=== PATIENT | male | born 1980 | race Caucasian/White ===

== ENCOUNTER 2021-12-29 17:02 | Inpatient (IN) | payer OTHER ==
[~2021-12-29] VITALS: Ht 177.8 cm; Wt 98.1 kg
[~2021-12-29 17:02] MED LIST: AMPHETAMINE SAL20 MG PO; METOPROLOL TART50 MG PO; SUDOGEST60 MG PO
[2021-12-29] MEDS ORDERED: ADDERALL 20 MG20 MG PO (17:21)
--- NOTE | 2021-12-29 18:10 | NUR ---
12/29/211809 Jacquie Herrera6- PT ARRIVES TO PACU NONAROUSABLE TO STIMULI. PT NEEDING A JAW LIFT TO MAINTAIN PATENT AIRWAY. RESP EVEN AND UNLABORED. OXYGEN SAT HIGH 90'S TO 100% ON 6L VIA MASK.
--- NOTE | 2021-12-29 20:46 | NUR ---
PT ASSESSMENT COMPLETE. PT RESTING IN BED WITH EYES CLOSED. PT REPORTS CONTINUED NAUSEA. PRN ADMINISTERED. PT REPORTS PAIN 3/10 TO LLE. PT STATES THIS IS A TOLERABLE PAIN LEVEL. PT DENIES SOB, CPOX PRESENT AT BEDSIDE, SA02 95% ON RA. LLE WITH NUMBNESS AND PT UNABLE TO MOVE TOES. CMS INTACT TO ALL OTHER EXTREMITIES. DRESSING TO LLE C/D/I. LLE ELEVATED ON PILLOWS. ICE PACKS PRESENT TO LLE. SCD PRESENT TO RLE. IV FLUSHED WITH 10 ML NS. WNL, PATENT. IVF INFUSING ORDERED. POC FOR THIS SHIFT DISCUSSED WITH PT. PT DENIES QUESTIONS OR CONCERNS AT THIS TIME. CALL LIGHT IN REACH. URINAL AND PERSONAL CARE ITEMS LEFT WITHIN REACH.
--- NOTE | 2021-12-29 22:03 | NUR ---
PT'S UTILIZES CALL LIGHT, REPORTS THAT PT IS THROWING UP. CURTAIN STITCHER TO ROOM. 150ML OF LIGHT GREEN EMESIS PRESENT IN BAG. PT REPORTS CONTINUED NAUSEA. COOL WASHCLOTH PROVIDED. NOTIFIED. NEW ORDERS RECEIVED.
--- NOTE | 2021-12-29 22:28 | NUR ---
PT STATES HE IS CURRENTLY NAUSEATED IF HE ATTEMPTS TO MOVE. PRN NAUSEA MEDICATION ADMINISTERED. PT DENIES NEEDS AT THIS TIME. CALL LIGHT IN REACH. PT'S SLEEPING ON COUCH AT BEDSIDE.
--- NOTE | 2021-12-29 23:00 | NUR ---
MILL OPERATOR TO ROOM FOR POST OP VITALS. PT STATES THAT NAUSEA IS IMPROVED LONG HE DOES NOT MOVE. SITTING IN BED WITH LIGHTS OFF. PT'S RESTING AT BEDSIDE. PT STATES THAT PAIN IS WELL CONTROLLED. PT DENIES NEEDS AT THIS TIME. CALL LIGHT IN REACH.
--- NOTE | 2021-12-30 00:15 | NUR ---
PT ROUNDING. PT RESTING IN BED AWAKE. STATES THAT PAIN AND NAUSEA ARE WELL CONTROLLED. DENIES NEEDS. CALL LIGHT IN REACH. ASLEEP ON COUCH.
--- NOTE | 2021-12-30 02:34 | NUR ---
PT ASSESSMENT COMPLETE. PT RESTING IN BED WITH EYES CLOSED, WAKES EASILY WHEN BELL PERSON ENTERS THE ROOM. PT RATING PAIN 3-4/10 TO LLE. STATES THAT PAIN IS TOLERABLE, DENIES NEEDS FOR PAIN MEDICATION AT THIS TIME. PT DENIES NAUSEA OR SOB. LLE WITH GENERALIZED SWELLING. CAP REFILL LESS THAN 3 SECONDS. PT REPORTS CONTINUED NUMBNESS TO L FOOT, HE IS UNALBE TO MOVE TOES OR PUSH/PULL. PEDAL PULSES FAINT BILATERALLY. DRESSING TO LLE C/D/I. LLE ELEVATED. NEW ICE PACKS PROVIDED FOR LLE. SCD PRESENT TO RLE. ICE WATER AND ICE CHIPS PROVIDED PER REQUEST. PT DENIES FURTHER NEEDS. CALL LIGHT IN REACH.
--- NOTE | 2021-12-30 04:30 | NUR ---
PT RESTING IN BED WITH EYES CLOSED. RESPIRATIONS ARE EVEN AND UNALBORED. SAO2 97% ON BEDSIDE CPOX. PT DOES NOT WAKE WHILE FASHION ADVISER AT DOORWAY, APPEARS TO BE SLEEPING. CALL LIGHTIN REACH. PT'S SLEPING ON COUCH.
--- NOTE | 2021-12-30 06:03 | NUR ---
PT IN BED. VITALS AND IS AND OS COMPLETE. NO FURTHER NEEDS. CALL LIGHT WITHIN REACH.
--- NOTE | 2021-12-30 06:49 | NUR ---
JOY OPERATOR HELPER TO ROOM FOR SCHEDULED MEDICATION ADMINISTRATION. PT RESTING IN BED AWAKE. PT RATES PAIN 4/10. PT STATES THAT PAIN IS BEGINNING TO INCREASE, REQUESTS PRN. JELLO PROVIDED AND PRN ADMINISTERED. GENERALIZED EDEMA CONTINUES TO LLE, CAP REFILL LESS THAN 3 SECONDS, PEDAL PULSE FAINT BUT PALPABLEM. PT CONTINUES TO BE UNABLE TO MOVE TOES OR PUSH/PULL BUT STATES THAT HE CAN FEEL TOUCH. LLE ELEVATED ON 2 PILLOWS. ICE PACKS X 3 REFILLED. DRESSING TO LLE C/D/I. PT DENIES FURTHER NEEDS AT THIS TIME. CALL LIGHT IN REACH.
--- NOTE | 2021-12-30 07:27 | NUR ---
THIS RN RECEIVED SHIFT REPORT FROM SHIRA RAY. PATIENT RESTING QUIETLY SUPINE IN BED WITH LEFT LEG ELEVATED ON PILLOW AND PATIENT SAYS HIS PAIN IS CONTROLLED AT THIS TIME AND HE HAS NO BEEN NAUSEATED. PATIENT'S AT BEDSIDE. PATIENT'S LEFT LEG DRESSING CDI. SCD ON RIGHT LEG. PATIENT DENIES ANY CARE NEEDS AT THIS TIME. CALL LIGHT IS IN REACH.
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
--- NOTE | 2021-12-30 08:07 | NUR ---
THIS RN IN AND AM ASSESSMENT COMPLETE. LEFT LOWER EXTREMITY WARM AND PINK. PEDAL PULSE WEAK, BUT MATCHES PULSE ON RIGHT FOOT, AND CAP REFILL TO BOTH LESS THAN 3 SECONDS. PATIENT HAS HAD A BLOCK PLACED IN THAT LEFT LEG AND STILL CANNOT WIGGLE THOSE TOES, BUT IS ABLE TO TELL I'M TOUCHING HIS FOOT. PATIENT'S PAIN IS 4/10 AND HE SAYS HE IS COMFORTABLE AT THIS TIME AND DENIES NAUSEA. AM PO MED GIVEN. IV FLUSHES WELL. PATIENT AWAITING BREAKFAST AND DENIES ANY OTHER CARE NEEDS AT THIS TIME. CALL LIGHT IN REACH.
[2021-12-30] MEDS ORDERED: AMPHETAMINE SAL20 MG PO (08:35)
--- NOTE | 2021-12-30 09:43 | NUR ---
THIS RN DOING ROUNDS. PATIENT'S PAIN STILL 4/10 AND HE IS COMFORTABLE AND DENIES ANY CARE NEEDS AT THIS TIME. ICE PACKES TO LLE STILL HAVE ICE AND LEG REMAINS ELEVATED ON PILLOWS. CALL LIGHT IS IN REACH.
--- NOTE | 2021-12-30 11:15 | NUR ---
ANESTHESIA PROVIDER IN SEEING PATIENT AT THIS TIME.
--- NOTE | 2021-12-30 13:29 | NUR ---
THIS RN IN TO SEE PATIENT AND PAIN IS 5/10 IN THE LLE NOW AND PATIENT REQUESTING PAIN MEDS. 10MG PO OXYCODONE GIVEN AND IV ANCEF ALSO GIVEN. ICE WATER REFILLED AND 3 ISE BAGS TO LLE ALSO REFILLED. PATIENT HAS FINALLY VOIDED 500MLS CLEAR YELLOW URINE AND URINAL EMPTIED. PATIENT HAD NO OTHER NURSE CARE NEEDS AT THIS TIME. CALL LIGHT IS IN REACH.
[2021-12-30] MEDS ORDERED: EPINEPHRIN0.3 MG/0.3 IM (13:42)
--- NOTE | 2021-12-30 13:43 | NUR ---
MED REC COMPLETE
--- NOTE | 2021-12-30 13:47 | NUR ---
THIS RN IN AND RECHECKED PATIENT'S B/P WHICH WOODWORKING MACHINIST INFORMED ME WAS A LITTLE LOW. PATIENT NOT SYMPTOMATIC AND INFORMS THIS RN HIS BLOOD PRESSURE AND HR ARE ALWAYS LOW. CALL LIGHT IN REACH. THIS RN CALLED KITCHEN TO GET PATIENT A MILK SHAKE. CALL LIGHT IN REACH.
--- NOTE | 2021-12-30 13:47 | NUR ---
PT IN BED RESTING. VITALS AND IS AND OS COMPLETE. NO FURTHER NEEDS. CALL LIGHT WITHIN REACH.
--- NOTE | 2021-12-30 14:47 | NUR ---
THIS RN IN TO SEE PATIENT. LLE PAIN 2/10 AT THIS TIME AND PATIENT IS COMFORTABLE AND HE HAS BEEN EATING WELL. AFTERNOON ASSESSMENT COMPLETE. PATIENT STILL CANNOT WIGGLE THE TOES ON HIS LEFT FOOT, BUT CAN TELL THAT I'M TOUCHING THEM. PEDAL PULSE REMAINS THE SAME AND IS PALPABLE. FOOT IS PINK AND WARM AND CAP REFILL <3 SECONDS. CALL LIGHT IS IN REACH. PATIENT FINISHED THE MILK SHAKE THAT WAS SENT UP FROM THE KITCHEN. PATIENT DENIES ANY OTHER CARE NEEDS AT THIS TIME.
--- NOTE | 2021-12-30 16:48 | NUR ---
THIS RN IN TOO CHECK ON PATIENT. PATIENT'S PAIN 2/10 AND HE IS COMFORTABLE. PATIENT AWAITING THE ARRIVAL OF DINNER AND ASKED THAT I CALL THE KITCHEN FOR ANOTHER CHOCOLATE SHAKE. WHICH I DID. PATIENT DENIES ANY OTHER CARE NEEDS AT THIS TIME. CALL LIGHT IN REACH.
--- NOTE | 2021-12-30 18:27 | NUR ---
THIS RN IN TO SEE PATIENT. PATIENT'S PAIN IS STARTING TO INCREASE AND IS AT 5/10 AT THIS TIME, BUT BLOCK IN THE LEFT LEG IS STARTING TO WEAR OFF PATIENT IS ABLE TO MOVE HIS LEFT TOES A LITTLE NOW AND IS VERY CONCERNED ABOUT HIS PAIN INCREASING.10GM PO OXYCODONE GIVEN. PATIENT'S IS AT BEDSIDE. CALL LIGHT IN REACH. NEW ICE BAGS IN PALCE AROUND LLE AND DRESSING REMAINS C/D/I. PATIENT DENIES ANY OTHER CARE NEEDS AT THIS TIME.
--- NOTE | 2021-12-30 19:20 | NUR ---
BEDSIDE REPORT FROM KAY Mckeon. PT RESTING IN BED, LEFT LEG ELEVATED DRSG CDI WITH ICE TO AREA. IN ROOM, WHITE BOARD UPDATED PT WITH CALL LIGHT. DENIES NEEDS.
--- NOTE | 2021-12-30 21:40 | NUR ---
PT AWAKENED FOR ASSESSMENT, TELE 9 SINUS TACHY, IV ABX FUSED AND SL IV. PT WITH CALL LIGHT AND NO OTHER NEEDS AT THIS TIME.
--- NOTE | 2021-12-31 01:05 | NUR ---
pt given po pain med for left leg. [facility] wnl - drsg cdi, pt voiding well in urinal. npo for anticpated closure of wound today - educated pt. call light in reach -
--- NOTE | 2021-12-31 04:54 | NUR ---
PT CALLED FOR PO PAIN MEDS, LEFT SURGICAL SITE LEFT LEG - 7/10 PAIN, CMS WNL. ICE TO AREA, DRSG CDI. PT VOID 550 ML CLEAR YELLOW URINE, LR WITH STRAIT TUBING TO IV POLE IN ANTICPATION OF SURGERY TODAY - PRE PROCEDURE CHECKLIST UPDATED.
--- NOTE | 2021-12-31 07:20 | NUR ---
HANDOFF REPORT RECEIVED FROM JUDICIAL ADMINISTRATIVE ASSISTANT RN. PT SLEEPING, LEFT UNDISTURBED.
--- NOTE | 2021-12-31 07:51 | NUR ---
PT REPORT OF INCREASED PAIN IN LEFT LEG, 8/10, THROBBING, ACHING. RECEIVED OXYCODONE AT 0452, NO OTHER PAIN MEDICATION AVAILABLE. CALL PLACED TO DR. PERLA, TELEPHONE ORDER FOR IV DILAUDID 0.5-1MG Q2H PRN FOR PAIN, RBOV.
--- NOTE | 2021-12-31 09:10 | NUR ---
PT TO OR WITH OR NURSE.
--- NOTE | 2021-12-31 10:53 | NUR ---
12/31/21 1053 Oksana Sierra 1036-PATIENT ARRIVED TO PACU ON 10L MASK NONAROUSABLE ORAL AIRWAY IN PLACE. RN DOING JAW THRUST TO MAINTAIN OPEN. SR. IVF INFUSING. DRESSING INTACT. ELEVATED ON PILLOW. PALPABLE PULSE TO LEFT FOOT. GOOD CAP REFILL. 1040-PATIENT OPENING EYES ORAL AIRWAY IN PLACE 6L MASK 100% RR 8 PATIENT TAKES DEEP BREATHES ON COMMAND APNEA NOTED. 1044-PATIENT OPENING EYES TO VERBAL STIMULI REACHING FOR MOUTH. ORAL AIRWAY REMOVED. ORIENTED TO PACU. PATIENT STATES SILENTLY MY LEG HURTS" PATIENT IS VERY DROWSY CLOSES EYES. 6L MASK 100% PATIENT ABLE TO WIGGLE TOES TO LEFT FOOT. 1053-PATIENT SLEEPING AROUSES SELF 6L MASK 100%
--- NOTE | 2021-12-31 12:30 | NUR ---
PT RECEIVED FROM PACU. PT DROWSY, BUT AROUSABLE TO VOICE. LEG ELEVATED, ICE PACKS IN PLACE, PAIN 3/10 CMS INTACT. PT PROVIDED WITH ICE WATER. ASSESSMENT COMPLETED.
--- NOTE | 2021-12-31 13:30 | NUR ---
Spoke with pt and he denies needs. Very sleepy following surgery. Will follow up tomorrow
--- NOTE | 2021-12-31 13:30 | NUR ---
PATIENT RESTING IN BED WITH HIS FAMILY AT THE BEDSIDE. PATIENT IS AWAKE ALERT AND ORIENTED. PATIENT DENIES NAUSEA. PATIENT SITTING UP IN BED DRINKING WATER AND REQUESTING TO EAT SOMETHING. CLEAR LIQUID OFFERED TO PATIENT. BROTH AND JELLO AT THE BEDSIDE. PATIENTS LEFT LOWER LEG DRESSING IS C/D/I/ NO DRAINAGE NOTED. PAIN IS MANAGABLE AT THIS TIME. UNABLE TO WEAN OXYGEN AT THIS TIME. WILL RE-EVALUATE. NO OTHER NEEDS AT THIS TIME. WILL CONTINUE TO CLOSELY MONITOR.
--- NOTE | 2021-12-31 19:10 | NUR ---
report from kameron rn, pt sl iv, i/o qs, drsg left leg wnl - new ice packs provided. pt denies needs, call light in reach.
--- NOTE | 2021-12-31 21:10 | NUR ---
assessment done- pt cms wnl - educated about stool softners - and pain medications - toradol iv given, discussed iv abx. in room with pt - both denies needs - call light in reach.
--- NOTE | 2022-01-01 02:17 | NUR ---
PT SLEEPING, RESP REG, LEFT LEG WNL, CMS GOOD, SCHEDULED IV TORADOL GIVEN FOR PAIN, RATES 5/10 AND ABLE TO SLEEP. CALL LIGHT IN REACH.
--- NOTE | 2022-01-01 06:15 | NUR ---
PT AWAKEN FOR ANCEF IV AND PO PAIN MEDS, CONT TO REST AFTER MEDS GIVEN
--- NOTE | 2022-01-01 07:03 | NUR ---
REPORT RECEIVED FROM SHIRA ROSENBERG. PT RESTING IN BED ON BACK WITH EYES CLOSED, LLE ELEVATED ON PILLOWS, ICE PACKS IN PLACE. OXYGEN SATURATION 95% ON ROOM AIR WITH HR OF 63. PTS AT BEDSIDE, BED RAILS UP. CALL LIGHT WITHIN REACH. BED RAILS UP. PT ALLOWED TO REST.
--- NOTE | 2022-01-01 07:14 | OR ---
[facility] [address], [place] [address] Signed DATE OF OPERATION: 12/31/2021 SURGEON: Chris Wu MD PREOPERATIVE DIAGNOSIS: Compartment syndrome, left lower extremity, status post fasciotomy. POSTOPERATIVE DIAGNOSIS: Compartment syndrome, left lower extremity, status post fasciotomy. PROCEDURES PERFORMED: 1. Irrigation and debridement of skin, subcutaneous tissue, and muscle. 2. Delayed primary closure, left calf wound. AEGIS CONSOLE OPERATOR TRACK: None. ANESTHESIA: General. BLOOD LOSS: Minimal. TOURNIQUET: Zero. BRIEF HISTORY: Juancho is a 41-year-old gentleman, who underwent a fasciotomy on Wednesday evening for compartment syndrome in his left calf. He did have necrotic muscle and a little bit of injured nerve at that time. He was packed open and treated with IV antibiotics and elevation. He was brought back today for inspection of the wound and possible delayed primary closure. Risks and benefits were discussed with him. He elected to proceed. DESCRIPTION OF PROCEDURE: Once consent was obtained, he was taken to the operating room after adequate anesthesia. He was placed on operating table. All downside pressure points well padded. The leg was prepped and draped in a standard sterile fashion after removing the prior dressing. The wound was then inspected. There was a small amount of necrotic tissue in the very inferior aspect or distal aspect of the tibialis anterior. The remainder of the muscle was completely intact with no evidence of necrosis. There was no evidence of infection, Electronically Signed By: CHRIS WU MD 01/01/22 0714 PATIENT NAME: JUANCHO ACOSTA OPERATIVE REPORT DATE OF : 76 REPORT #: [id number] PHYSICIAN: CHRIS WU MD PCP: UMA TYSON MD REPORT IS CONFIDENTIAL AND NOT TO BE RELEASED WITHOUT AUTHORIZATION [address] [place], [place] [address] Signed no drainage. The tibial nerve was identified and visualized and was found to be in much better condition than it was. The swelling had resolved and it appeared to be in the normal confirmation. The wound was then copiously irrigated with 2 L of normal saline under hand irrigation. The skin was then closed using 2-0 nylon in an interrupted fashion. The wound was dressed with Allevyn, ABDs, and Mitch wrap. He tolerated the procedure well. All sponge, needle, and instrument counts were correct. Chris Wu MD BA/MODL /[id number] Copies: ~ Electronically Signed By: CHRIS WU MD 01/01/22 0714 PATIENT NAME: JUANCHO ACOSTA CL[place] OPERATIVE REPORT DATE OF : 76 REPORT #: [id number] PHYSICIAN: CHRIS WU MD PCP: UMA TYSON MD REPORT IS CONFIDENTIAL AND NOT TO BE RELEASED WITHOUT AUTHORIZATION
--- NOTE | 2022-01-01 07:31 | NUR ---
ROUNDING IN PT ROOM WITH DR PERLA, PLAN FOR DC HOME TODAY WITH NO RESTRICTIONS TO WEIGHT BEARING - PO PAIN MEDS AND ABX CONTINUE AND WILL DO PT TODAY AND PLAN FOR DC AFTER LUNCH.
[2022-01-01] MEDS ORDERED: HYDROMORPHONE HC4 MG PO (07:35)
[2022-01-01] MEDS ORDERED: CEFPROZIL500 MG PO (07:35)
[2022-01-01] MEDS ORDERED: GABAPENTIN600 MG PO (07:35)
[2022-01-01] MEDS ORDERED: SENNA LAX8.6 MG PO (07:35)
--- NOTE | 2022-01-01 08:06 | NUR ---
MORNING ASSESSMENT AND MEDICATION DUE. PT RESTING IN BED, AWAKEN AND ALERT. PT VEBALIZES UNDERSTANDING OF PLAN OF CARE REVEIWED WITH HIM BY DR PERLA WHEN HE ROUNDED. PT REPORTS 5/10 PAIN IN LEFT LOWER EXREMITY, SCHEDULED TORADOL GIVEN, ICE PACKS REFILLED AND PLACED X3 ON LATERAL, MEDIAL AND TOP OF LEFT LOWER LEG. PT CONTINUES TO REPORT "A LITTLE NUMBNESS" TO HIS LEFT TOES. CAP REFILL APPROXIMATLY 4 SECONDS. PT ABLE TO MOVE ALL HIS TONES AND EXHIBITS STRONG PLANTAR AND DORSI FLEXTION. PEDIAL AND TIBIAL PULSES NOTED. PT REMAINS IN BED PENDING PHYSICAL THERAPY EVALUATION. DARIEN CABRERA REMAINS ON TELEMETRY MONITORING. CPOX SHOWS OXGYEN SATURATION OF 95-99%. CPOX DC'D PER PT REQUEST. LEFT LOWER LEG REMAINS ELEVATED. SCD IN PLACE TO RIGHT LOWER LEG. LEFT LOWER LEG WARM TO TOUCH. DRESSING TO LLE C/D/I WITH NO DRAINAGE NOTED. PT EATING BREAKFAST. NO ADDITIONAL REQUESTS OR COMPLAINTS. CALL LIGHT WITHIN REACH. BED RAILS UP.
--- NOTE | 2022-01-01 08:57 | NUR ---
THIS RN TO ROOM TO CHECK ON PT. PT RESTING IN BED WITH EYES CLOSED, RESPRIATIONS EVEN AND UNLABORED. PT ALLOWED TO REST. CALL LIGHT WITHIN REACH. BED RAILS UP.
--- NOTE | 2022-01-01 09:42 | NUR ---
HOURLY ROUNDING: THIS RN TO ROOM TO CHECK ON PT. PT CONTINUES RESTING WITH EYES CLOSED. RESPIRATIONS EVEN AND UNLABORED. BED RAILS UP. CALL LIGHT WITHIN REACH. PT ALLOWED TO REST.
--- NOTE | 2022-01-01 10:45 | NUR ---
HOULRY ROUNDING: THIS RN TO ROOM TO CHECK ON PT. PT CONTINUES RESTING WITH EYES CLOSED. RESPIRATIONS EVEN AND UNLABORED. CALL LIGHT WITHIN REACH. BED RAILS UP. PT ALLOWED TO REST.
--- NOTE | 2022-01-01 11:00 | NUR ---
Spoke with Chencho and he plans on dc today. Sister is bringing a walker for him. will transport him home. He denies other needs.
--- NOTE | 2022-01-01 11:27 | NUR ---
PT UP TO AMBULATE WITH PHYSICAL THERAPY AND FWW. PT REPORTS "IT HURTS" BUT DECLINES PAIN MEDICATION AT THIS TIME. NO ADDITIONAL REQUESTS OR COMPLAINTS AT THIS TIME.
--- NOTE | 2022-01-01 11:42 | NUR ---
PT FINISHED WITH PHYSICAL THERAPY AND BACK TO ROOM. PT RPEORTS 6/10 PAIN AND REQUESTS PAIN MEDICATION. SEE MAR FOR MEDICATION GIVEN. ICE PACKS REFILLED. PT REPORTS HE FEELS READY TO GO HOME, WILL CONSULT MD. NO ADDITIONAL REQUESTS OR COMPLAINTS. CALL LIGHT WITHIN REACH. BED RAILS UP.
--- NOTE | 2022-01-01 12:10 | NUR ---
DR. PERLA CALLED AND UPDATED ON PT STATUS AND PHYSICAL THERAPY. DR. PERLA STATES TO DISCHARGE PT AT THIS TIME. ORDERS ENTERED PER DR. PERLA. REPEAT BACK PERFORMED. CHARGE NURSE AND PT UPDATED.
--- NOTE | 2022-01-01 12:39 | NUR ---
PT READY FOR DISCHARGE. DISCHRAGE INSTRUCTIONS REVIEWED WITH PT AND PTS . PT AND VERBALIZE UNDERSTANDING OF INSTRUCTIONS, MEDICATIONS, FOLLOW UP AND ACTIVITY. PT STATES HIS QUESTIONS HAVE BEEN ANSWERED. PT REPROTS 4/10 PAIN IN LEFT LOWER EXTREMITY AT THIS TIME. ICE PACKS IN PLACE. PT DRESSES WITH ASSISTANCE FROM . IV DC'D PER PROTOCOL, GAUZE AND COBAN APPLIED. VITALS SIGNS STABLE. PT STATES HE WILL CALL WHEN READY TO DISCHRAGE. NO ADDITIONAL NEEDS AT THSI TIME. CALL LIGHT WITHIN REACH.
--- NOTE | 2022-01-01 12:53 | NUR ---
PT CALL LIGHT ON, PT REPORTS HE IS FINISHED WITH LUNCH BROUGHT BY HIS AND IS READY FOR DISCHARGE. PT TRANSFERS SELF TO WHEELCHAIR. PT DECLINES NEED TO TALK WITH PHARMACIST AND STATES HE WOULD "JUST LIKE TO GO." PT WHEELED FROM MED/SURG WITH AND ALL HIS BELONGINGS. NO ADDITIONAL REQUESTS OR CONCERNS.
== END 2022-01-01 12:53 | disposition home or self-care (01) | DRG 909 ==
LOC: MS 17:02 → DS 17:02 → MS 19:50 → DS 19:51 → MS 19:52
PROVIDERS: ADMIT Specialist; ATTEND Specialist
PROC: 0KNT0ZZ Release Left Lower Leg Muscle, Open Approach (ICD-10-PCS; principal; 2021-12-29 17:55)
PROC: 0HQLXZZ Repair Left Lower Leg Skin, External Approach (ICD-10-PCS; 2021-12-31)
PROC: 0KBT0ZZ Excision of Left Lower Leg Muscle, Open Approach (ICD-10-PCS; 2021-12-31 10:00)
DX: T79.A22A Traumatic compartment syndrome of left lower extremity, initial encounter (principal); Z20.822 Contact with and (suspected) exposure to COVID-19
CPT/HCPCS: 00400; 36415; 64447; 76942; 80053; 83735; 85025; 93926; A9270; J0131; J0690; J1100; J1170; J1885; J2250; J2270; J2405; J2704; J2765; J3010; J7121; U0003

== ENCOUNTER 2022-01-04 11:18 | Emergency (ER) | payer OTHER ==
[~2022-01-04] VITALS: Ht 177.8 cm; Wt 98.0 kg
[~2022-01-04 11:18] MED LIST changes: +ADDERALL 20 MG20 MG PO; +CEFPROZIL500 MG PO; +EPINEPHRIN0.3 MG/0.3 IM; +GABAPENTIN600 MG PO; +HYDROMORPHONE HC4 MG PO; +SENNA LAX8.6 MG PO
--- OUTSIDE RECORDS SUMMARY | 2022-01-04 11:20 | XMS ---
PreManage Notification: JUANCHO ACOSTA Security Pharmacy Director Events No recent Security Events currently on file [facility] There are no care providers on record at this time. Tejinder has no Care Guidelines for this patient. Nazia VISIT COUNT (12 MO.) 2 [facility] TOTAL 2 NOTE: Visits indicate total known visits. ED/C VISIT TRACKING (12 MO.) 01/04/2022 11:19 [facility] TYPE: Emergency COMPLAINT: - LT KNEE PAIN 06/17/2021 04:03 [facility] TYPE: Emergency COMPLAINT: - CHILLS, VOMITING, DIZZY INPATIENT VISIT TRACKING (12 MO.) 12/29/2021 19:52 [facility] TYPE: Medical Surgical COMPLAINT: - LEFT LOWER EXTREMITY COMPARTMENT RELEASE 06/17/2021 04:04 [facility] TYPE: Observation COMPLAINT: - NEW ONSET AFIB WITH RVR VERTIGO DIAGNOSES: - Contact with and (suspected) exposure to COVID-19 - Other fatigue - Paroxysmal atrial fibrillation [email or web address]
== END 2022-01-04 13:23 | disposition home or self-care (01) ==
LOC: ED 11:18
DX: M96.840 Postprocedural hematoma of a musculoskeletal structure following a musculoskeletal system procedure (principal); Z79.899 Other long term (current) drug therapy
CPT/HCPCS: 36415; 80053; 83605; 85025; 93971; 99284-25

== ENCOUNTER 2022-12-18 05:53 | Day surgery (SDC) | payer OTHER ==
[2022-12-17 13:55] VITALS: BP 128/83
[~2022-12-18] VITALS: Ht 177.8 cm; Wt 97.7 kg
[~2022-12-18 05:53] MED LIST changes: +MELOXICAM15 MG PO
[2022-12-18 06:08] VITALS: BP 121/83
[2022-12-18] MEDS ORDERED: HYDROCODON-ACE1 EA10 PO (07:28)
--- NOTE | 2022-12-18 07:31 | NUR ---
12/18/22 0731 Sheets,Rhiannon 0799 PT ARRIVED TO PACU ON RA AND PT REACTIVE, RESP EVEN AND UPLABORED 0729 PT WAKES EASILY TO VERBAL STIMULI, ICE PLACED ON LEFT WRIST. PT REPROTS "SOME" NUMBNESS TO LEFT HAND. PT REPROTS PAIN 5/10 AND NO NAUSEA.
[2022-12-18 08:36] VITALS: BP 124/87
--- NOTE | 2022-12-18 18:22 | OR ---
[facility] [address] [place], [place] [address] Signed DATE OF OPERATION: 12/18/2022 SURGEON: Chris Wu MD PREOPERATIVE DIAGNOSIS: Carpal tunnel syndrome, left. POSTOPERATIVE DIAGNOSIS: Carpal tunnel syndrome, left. PROCEDURE PERFORMED: Carpal tunnel release, left. TECHNICAL INSPECTOR: None. ANESTHESIA: [place] block. TOURNIQUET TIME: 20 minutes. BRIEF HISTORY: Juancho is a 42-year-old gentleman with bilateral carpal tunnel. Risks and benefits of operative treatment were discussed with him and he elected to proceed. PROCEDURE IN DETAIL: Once consent was obtained he was taken to the operating room. After adequate anesthesia, he was left on the day surgery bed. The arm table was brought in. His arm was prepped and draped in a standard sterile fashion after establishment of the Alex block. The carpal tunnel was approached through standard 1.5 cm incision in the distal wrist crease. This was carried through skin and subcutaneous tissue. Palmaris longus was identified, retracted and protected. The transverse carpal ligament was identified under loupe magnification. It was dissected free of overlying soft tissue. Under again loupe magnification was released proximally a cm and distally to the distal extent. This was palpated using a [place] and found to be completely released. The nerve appeared to be in good condition. The were noted to refill. The wound was then copiously irrigated with normal saline, closed with 3-0 nylon and infiltrated with 7 mL of 0.25% Marcaine without epinephrine. The wound was then dressed with bacitracin, Adaptic 4 x Electronically Signed By: CHRIS WU MD 12/18/22 1822 PATIENT NAME: JUANCHO ACOSTA OPERATIVE REPORT DATE OF : 76 REPORT #: [id number] PHYSICIAN: CHRIS WU MD PCP: UMA TYSON MD REPORT IS CONFIDENTIAL AND NOT TO BE RELEASED WITHOUT AUTHORIZATION [facility] [address] [place] [address] [place], [place] [address] Signed 8s, and gauze. He tolerated the procedure well. All sponge, needle, and instrument counts were correct. Chris Wu MD BA/MODL /[id number] Copies: ~ Electronically Signed By: CHRIS WU MD 12/18/22 1822 PATIENT NAME: JUANCHO ACOSTAY OPERATIVE REPORT DATE OF : 76 REPORT #: [id number] PHYSICIAN: CHRIS WU MD PCP: UMA TYSON MD REPORT IS CONFIDENTIAL AND NOT TO BE RELEASED WITHOUT AUTHORIZATION
== END 2022-12-18 08:49 | disposition home or self-care (01) ==
LOC: OPS 05:53 → DS 05:53 → OPS 08:40 → DS 09:00 → OPS 09:00
PROVIDERS: ATTEND Specialist
PROC: 01N50ZZ Release Median Nerve, Open Approach (ICD-10-PCS; principal; 2022-12-18 09:00)
DX: G56.03 Carpal tunnel syndrome, bilateral upper limbs (principal)
CPT/HCPCS: A9270; J0690; J1885; J2704; J7121

== ENCOUNTER 2023-02-05 05:40 | Day surgery (SDC) | payer OTHER ==
--- NOTE | 2023-02-04 16:27 | NUR ---
RECEIVED PHONE CALL FROM DR PERLA OFFICE AND STATES THAT THIS PATIENT DID NOT NEED TO PRE-ADMIT TODAY AT 16:[address] PERLA OFFICE CALLED AT 15:40 TO CANCEL PRE-ADMIT APPOINTMENT. [facility]AN[facility] PROVIDED THE OFFICE WITH TIME THE PATIENT IS TO ARRIVE 05:45 AM ON 02-05-23.
[~2023-02-05] VITALS: Ht 177.8 cm; Wt 97.7 kg
[~2023-02-05 05:40] MED LIST changes: +HYDROCODON-ACE1 EA10 PO
[2023-02-05 05:57] VITALS: BP 135/79
[2023-02-05] MEDS ORDERED: HYDROCODON-ACE1 EA10 PO (07:23)
--- NOTE | 2023-02-05 07:33 | NUR ---
02/05/23 0733 Angela Wu PT TO PACU SLEEPY BUT RESPONDS TO VERBAL STIMULI. HE DENIES PAIN AND NAUSEA.
[2023-02-05 07:47] VITALS: BP 117/80
--- NOTE | 2023-02-06 09:35 | OR ---
[facility] [address] [facility] [place] [address] Signed DATE OF OPERATION: 02/05/2023 SURGEON: Chris Wu MD PREOPERATIVE DIAGNOSIS: Carpal tunnel syndrome, right. POSTOPERATIVE DIAGNOSIS: Carpal tunnel syndrome, right. PROCEDURE PERFORMED: Right carpal tunnel release. SURFACE LOGGING SYSTEMS LOGGER: None. ANESTHESIA: Alex block. TOURNIQUET TIME: 20 minutes. BRIEF HISTORY: Juancho is a 42-year-old gentleman with bilateral carpal tunnel. He had undergone successful left release and wished to proceed with the right. Risks, benefits, and alternatives were discussed. He understands, wished to proceed. DESCRIPTION OF PROCEDURE: Once consent was obtained, he was taken to the operating room. After adequate anesthesia, he was left on the day surgery bed and the hand table was brought in. The arm was then prepped and draped in a standard sterile fashion. The carpal tunnel was approached through a 1.5 cm incision in the distal wrist crease, this carried through skin and subcutaneous tissue. Palmaris longus was identified, retracted, and protected. The transverse carpal ligament was identified under loupe magnification. It was cleared of soft tissue proximally and distally. It was then released using tenotomy scissors approximately a centimeter. It was then released distally to the distal extent. This was palpated using the [place] and found to be completely released. The nerve was easily visible. The wound was copiously irrigated with normal saline, closed with 3-0 nylon. The wound was then injected with 7 mL of 0.25% plain Marcaine. The wound was then Electronically Signed By: CHRIS WU MD 02/06/23 0935 PATIENT NAME: JUANCHO ACOSTA OPERATIVE REPORT DATE OF : 76 REPORT #: [id number] PHYSICIAN: CHRIS WU MD PCP: UMA TYSON MD REPORT IS CONFIDENTIAL AND NOT TO BE RELEASED WITHOUT AUTHORIZATION [facility] [address] [facility] [place] [address] Signed dressed with bacitracin, Adaptic, 4x8's, and gauze. He tolerated the procedure well. All sponge, needle, and instrument counts were correct. Chris Wu MD BA/MODL /[id number] Copies: ~ Electronically Signed By: CHRIS WU MD 02/06/23 0935 PATIENT NAME: JUANCHO ACOSTA [place] OPERATIVE REPORT DATE OF : 76 REPORT #: [id number] PHYSICIAN: CHRIS WU MD PCP: UMA TYSON MD REPORT IS CONFIDENTIAL AND NOT TO BE RELEASED WITHOUT AUTHORIZATION
== END 2023-02-05 08:02 | disposition home or self-care (01) ==
LOC: OPS 05:40 → DS 05:40 → OPS 07:00 → DS 07:30 → OPS 08:02
PROVIDERS: ATTEND Specialist
PROC: 01N50ZZ Release Median Nerve, Open Approach (ICD-10-PCS; principal; 2023-02-05 07:00)
DX: G56.01 Carpal tunnel syndrome, right upper limb (principal)
CPT/HCPCS: 01810; J1885; J2250; J2405; J2704; J7121